=== PATIENT | female | born 1990 | race Caucasian/White ===

== ENCOUNTER 2019-05-04 09:56 | Inpatient (IN) ==
[2019-05-04] MEDS ORDERED: Oxytocin 20 units/ LR 1000 mL 20 UNIT/1,000 ML BAG IVC SCH ×2 (11:45→23:32)
[2019-05-04] MEDS ORDERED: *HR* Nalbuphine 10 MG/ML AMPUL IVP PRN (11:48)
[2019-05-04] MEDS ORDERED: Ondansetron 4 MG/2 ML VIAL IVP PRN (11:48)
[2019-05-04] MEDS ORDERED: Famotidine 20 MG/2 ML VIAL IVP PRN (11:48)
[2019-05-04] MEDS ORDERED: Naloxone 0.4 MG/ML INJ IVP PRN (11:48)
[2019-05-04] MEDS ORDERED: Metoclopramide 10 MG/2 ML VIAL IVP PRN (11:48)
[2019-05-04] MEDS ORDERED: Penicillin G Potassium 5,000,000 UNIT in 0.9 % Sodium Chloride Mini Bag 100 ML IVPB ONE (11:54)
[2019-05-04] MEDS ORDERED: Penicillin G Potassium 2,500,000 UNIT in 0.9 % Sodium Chloride 100 ML IVPB SCH (12:00)
[2019-05-04] MEDS ORDERED: Ringers Solution, Lactated 1,000 ML IVC SCH (12:00)
[2019-05-04] MEDS ORDERED: Ringers Solution, Lactated 1,000 ML ONE (12:14)
[2019-05-04] MEDS ORDERED: Oxytocin 20 units/ LR 1000 mL 20 UNIT/1,000 ML BAG IVC ONE (12:15)
[2019-05-04 12:26] LABS: Basophils # 0.1 K/mcL (0.0-0.2); Basophils % 0.6 %; Eosinophils # 0.1 K/mcL (0.0-0.6); Eosinophils % 0.7 %; Hematocrit 42.4 % (35.3-44.9); Hemoglobin 14.5 g/dL (11.5-15.4); Immature Granulocytes % 1.2 % (0-4); Mean Corpuscular HGB Conc 34.2 g/dL (31.6-35.5); Mean Corpuscular Hemoglobin 31.4 pg (28.0-33.3); Mean Corpuscular Volume 91.8 fL (83.0-100.0); Mean Platelet Volume 10.6 fL (9.4-12.4); Monocytes # 0.9 K/mcL (0.0-1.3); Neutrophils # 8.5 K/mcL (1.6-8.9); Platelet Count 194 K/mcL (140-400); Red Blood Count 4.62 M/mcL (3.82-4.97); Red Cell Distribution Width 12.1 % (11.5-14.5); Segmented Neutrophils % 72.5 %; White Blood Count 11.7 K/mcL (4.3-11.1)
[2019-05-04] MEDS ORDERED: miSOPROStoL 25 MCG TABLET VG PRN (13:09)
[2019-05-04] MEDS ORDERED: valACYclovir 500 MG TABLET PO SCH (14:00)
[2019-05-04] MEDS ORDERED: Epidural Premix (fent/bupiv) 110 ML EP SCH ×2 (19:00→20:08)
[2019-05-04] MEDS ORDERED: Bupivacaine/EPI 1:200k 0.25%PF 10 ML VIAL INFILT ONE (19:19)
[2019-05-04] MEDS ORDERED: *HR* FentaNYL (PF) 100 MCG/2 ML VIAL ONE ×2 (19:19→21:10)
[2019-05-04] MEDS ORDERED: Lidocaine -MPF 1% 5 ML AMPUL ONE (19:19)
[2019-05-04] MEDS ORDERED: Bupivacaine-MPF 0.25% 10 ML VIAL EP ONE (20:07)
[2019-05-04] MEDS ORDERED: *HR* FentaNYL (PF) 100 MCG/2 ML VIAL EP ONE (20:07)
[2019-05-04 20:23] LABS: Amphetamine Screen,Urine Negative ng/mL (Cutoff=1000); Barbiturate Screen,Urine Negative ng/mL (Cutoff=200); Benzodiazepines Screen,Urine Negative ng/mL (Cutoff=200); Cannabinoid Screen,Urine Negative ng/mL (Cutoff = 50); Cocaine Screen,Urine Negative ng/mL (Cutoff= 300); Opiate Screen,Urine Negative ng/mL (Cutoff=300); Phencyclidine Screen,Urine Negative ng/mL (Cutoff=25)
[2019-05-04] MEDS ORDERED: Bupivacaine-MPF 0.25% 10 ML VIAL ONE (21:11)
[2019-05-04] MEDS ORDERED: Ibuprofen 600 MG TABLET PO PRN (23:32)
[2019-05-04] MEDS ORDERED: Lanolin 7 G OINT...G. TP PRN (23:32)
[2019-05-04] MEDS ORDERED: Benzocaine/Menthol 56 GM AEROSOL SPRAY TP PRN (23:32)
[2019-05-05] MEDS ORDERED: Acetaminophen 325 MG TABLET PO PRN (00:17)
[2019-05-05 06:08] LABS: Basophils % 0.3 %; Eosinophils % 0.3 %; Hematocrit 37.6 % (35.3-44.9); Immature Granulocytes % 0.8 % (0-4); Lymphocytes % 14.4 %; Mean Corpuscular HGB Conc 33.8 g/dL (31.6-35.5); Mean Corpuscular Volume 94.7 fL (83.0-100.0); Monocytes # 1.1 K/mcL (0.0-1.3); Monocytes % 7.9 %; Neutrophils # 10.5 K/mcL (1.6-8.9); Platelet Count 182 K/mcL (140-400); Red Blood Count 3.97 M/mcL (3.82-4.97); Segmented Neutrophils % 76.3 %; White Blood Count 13.7 K/mcL (4.3-11.1)
[2019-05-05 06:10] LABS: Hemoglobin 12.7 g/dL (11.5-15.4)
[2019-05-05] MEDS ORDERED: Prenatal Vit/FA 1 EACH TABLET PO SCH (09:00)
[2019-05-05 21:38] VITALS: BP 115/80
== END 2019-05-05 20:35 | disposition home or self-care (01) | DRG 560 ==
LOC: 1NENULAB 09:56 → 1NENUOBS 23:32
PROVIDERS: ADMIT Advanced Practice Midwife; ATTEND Advanced Practice Midwife